=== PATIENT | female | born 1980 | race Caucasian/White ===

== ENCOUNTER 2017-06-12 14:47 | Emergency (ER) ==
[2017-06-12] MEDS ORDERED: TORADOL ONE (16:51)
[2017-06-12] MEDS ORDERED: TYLENOL #3 ONE (16:51)
== END 2017-06-12 14:48 | disposition left against medical advice (07) ==
LOC: ED 14:47
DX: M54.2 Cervicalgia (principal); M54.9 Dorsalgia, unspecified; Z53.21 Procedure and treatment not carried out due to patient leaving prior to being seen by health care provider
CPT/HCPCS: J1885